=== PATIENT | male | born 1995 | race Caucasian/White ===

== ENCOUNTER 2020-09-08 18:18 | Emergency (ER) | payer BC, MEDICAID ==
[~2020-09-08] VITALS: Ht 177.8 cm; Wt 83.0 kg
[2020-09-08 18:22] VITALS: BP 137/87
== END 2020-09-08 19:41 | disposition left against medical advice (07) ==
LOC: ER 18:18
DX: Z53.21 Procedure and treatment not carried out due to patient leaving prior to being seen by health care provider (principal)

== ENCOUNTER 2024-02-19 02:31 | Emergency (ER) | payer MEDICAID, OTHER ==
[~2024-02-19] VITALS: Ht 177.8 cm; Wt 78.0 kg
[2024-02-19 02:33] VITALS: BP 159/104; PULSE 95; RESP 16; TEMP 98.3; O2SAT 99
[2024-02-19] MEDS: DIPHENHYDRAMINE 50MG/ML VIAL IM ONE (03:00)
== END 2024-02-19 03:00 | disposition home or self-care (01) ==
LOC: EDUNIT# 02:31 → ER 02:31
DX: R06.02 Shortness of breath (principal); F15.90 Other stimulant use, unspecified, uncomplicated
CPT/HCPCS: 99283; 96372; J1200